=== PATIENT | female | born 1975 | race American Indian/Alaskan Native ===

== ENCOUNTER → 2018-01-13 | Outpatient (CLI) | payer OTHER | LOC: COL.LAB 10:46 | DX: N76.0 Acute vaginitis (principal) ==

== ENCOUNTER 2018-01-15 09:48 | Emergency (ER) | payer OTHER ==
[~2018-01-15] VITALS: Ht 157.5 cm; Wt 99.1 kg
[2018-01-15 09:56] VITALS: TEMP 97.1
[2018-01-15] MEDS ORDERED: CARDIZEM120 MG PO (10:14)
[2018-01-15] MEDS ORDERED: TOPROL XL 25MG25 MG PO (10:14)
[2018-01-15] MEDS ORDERED: ELIQUIS 5MG PO (10:15)
[2018-01-15 10:29] LABS: BASO # 0.1 (0.0-0.2); BASO % 0.6 % (0.0-2.0); EOS # 0.1 (0.0-0.7); EOS % 1.3 % (0-4.0); GRAN # 6.4 (1.4-6.5); GRAN % 75.7 % (42.2-75.2); HEMATOCRIT 42.5 % (37.0-47.0); HEMOGLOBIN 13.8 g/dl (12.5-16.0); LYMPH # 1.4 (1.2-3.4); LYMPH % 16.5 % (20.0-51.0); MEAN CELL VOLUME 79 fl (80.0-100.0); MEAN CORPUSCULAR HEMOGLOBIN 26 pg (27.0-31.0); MEAN CORPUSCULAR HGB CONC 33 g/dl (33.0-37.0); MEAN PLATELET VOLUME 9.7 fl (7.4-10.4); MONO # 0.5 (0.1-0.6); MONO % 5.7 % (1.7-9.3); PLATELET COUNT 295 K/mm3 (130-400); RED BLOOD COUNT 5.37 M/mm3 (4.10-5.30)
[2018-01-15 10:36] LABS: INR 0.9 (0.8-3.0)
[2018-01-15 10:38] LABS: ALBUMIN 4.1 gm/dL (3.5-5.0); BILIRUBIN,TOTAL 0.5 mg/dL (0.0-1.0); CALCIUM 9.2 mg/dL (8.4-10.2); CREATININE, serum 0.53 mg/dL (0.52-1.25); TOTAL PROTEIN 7.7 gm/dL (6.4-8.2)
[2018-01-15 12:59] VITALS: BP 93/40; PULSE 134
== END 2018-01-15 12:59 | disposition other institution (70) ==
LOC: COL.ER 09:48
PROVIDERS: Emergency Medicine
DX: I48.91 Unspecified atrial fibrillation (principal)
CPT/HCPCS: J1650